=== PATIENT | male | born 1965 | race African-American/Black ===

== ENCOUNTER 2025-04-22 12:47 | Emergency (ER) | payer OTHER ==
[~2025-04-22] VITALS: Ht 190.5 cm; Wt 107.0 kg
[2025-04-22 12:51] VITALS: O2SAT 98
[2025-04-22] MEDS ORDERED: IBUP-2030 MT (16:13)
[2025-04-22 16:36] VITALS: BP 128/73; PULSE 75; RESP 17; TEMP 36.7; O2SAT 98
== END 2025-04-22 16:36 | disposition home or self-care (01) ==
LOC: ER 13:17
DX: S82.51XA Displaced fracture of medial malleolus of right tibia, initial encounter for closed fracture (principal); M19.072 Primary osteoarthritis, left ankle and foot; V98.8XXA Other specified transport accidents, initial encounter; Y93.89 Activity, other specified; Y92.89 Other specified places as the place of occurrence of the external cause; Y99.8 Other external cause status
CPT/HCPCS: 73560; 73610; 73630; 73650; 29515; 99284; A6449; Z7610